=== PATIENT | female | born 1960 | race Caucasian/White ===

== ENCOUNTER 2024-12-21 16:04 | Emergency (ER) | payer BC, SELFPAY ==
[2024-12-21 16:06] VITALS: BP 180/102
--- NOTE | 2024-12-21 18:51 | ED.GENMED ---
History of Present Illness
General
Chief Complaint: DVT/Possible Blood Clot
Source: patient
Exam Limitations: none
Time Seen by Provider: 12/21/24 18:08
Nursing documentation reviewed up to this point in time: agreed with
History of Present Illness
History of Present Illness:
64-year-old female presenting to the emergency department today with concerns of right calf swelling over the past few weeks. Sent in by her primary care doctor. Denies any chest pain shortness of breath no history of blood clots no recent trauma
surgery immobilization
Past History
Past History
ED Past Medical History: Hypercholesterolemia (Intolerant of meds), Hypothyroidism and Psychiatric (ADHD meds, antidepressants,)
ED Past Surgical History: Cardiac
Social History
Tobacco: 2nd hand smoke exposure
Drug: None
Personal:
Living: with family
Employment: Employed
Family History
Family History: Negative Early CAD
Review of Systems
Review of Systems
Allergies reviewed?: Yes
All Other Systems: ROS reviewed and negative except as documented in HPI and ROS
Phy Exam
Physical Exam
Physical Exam:
GENERAL: Alert , in no apparent distress
EYE: pupils equal and reactive
NECK: Supple, no significant adenopathy.
ENT: o/p clr, mmm.
CARDIAC: Regular rate and rhythm .
LUNGS: Clear breath sounds bilaterally, no acute respiratory distress, no wheezes/rales/rhonchi
ABDOMEN: Soft, without focal tenderness, no r/g, no cvat
NEUROLOGICAL: Alert and oriented, no focal neuro deficits
SKIN: Warm and dry, skin intact.
MUSCULOSKELETAL: Vague nonpitting edema to the right lower extremity distal to the knee no redness or warmth good distal pulses, well perfused.
PSYCH: Normal and appropriate interaction.
Course
Orders/Labs/Results
Orders:
Orders
12/21/24 16:07
Legs, Right US [US Periph Venous LOWER Ext RT] Urgent
Comment:
Reason For Exam: r/o DVT
Vital Signs
Initial and Last Documented VS:
Initial Vital Signs
Temp Pulse Resp BP Pulse Ox
98 F 98 16 180/102 98
12/21/24 16:06 12/21/24 16:06 12/21/24 16:06 12/21/24 16:06 12/21/24 16:06
Last Documented Vital Signs
Temp Pulse Resp BP Pulse Ox
98 F 98 16 180/102 98
12/21/24 16:06 12/21/24 16:06 12/21/24 16:06 12/21/24 16:06 12/21/24 16:06
MDM/Problems Addressed
MDM/Problems Addressed:
64-year-old female presenting to the emergency department today with concerns of right leg swelling over the past few weeks. Denies any chest pain shortness of breath no history of blood clots. Here ultrasound was performed without emergent
findings. Initial blood pressure elevated but improving without specific treatment here. Normal perfusion on examination. Advised for compression stocking and elevation otherwise advised her close outpatient follow-up for monitoring. Return
precautions given.
*Critical Care Note
Total Time (30-74mins, 75-104mins- exclusive of procedures): Not Applicable
ED Attending Note
-
Portions of this chart may have been created with voice recognition software.� Occasional wrong word or��sound alike� substitutions may have occurred due to the inherent limitations of voice recognition software.
Discharge Plan
Departure
Patient Disposition: Home (Routine Discharge)
Date of Disposition: 12/21/24
Time of Disposition: 18:52
Patient with high blood pressure during this ER visit?: No
Condition: Good
Covid-19: Not Applicable
Discharge Problem:
Leg swelling
Referrals:
Humaira Sexton MD [Family Provider] -
Activity Restrictions/Additional Instructions:
You came to the emergency department today with concerns of leg swelling. You had a normal ultrasound here. Please follow close with your primary care doctor for ongoing symptoms. Return for any worsening, new or concerning symptoms.
Interventions
Interventions:
*Risk Screen - Suicide Last Done: 12/21/24 16:07
*Neglect/Abuse Screening Last Done: 12/21/24 16:07
Discharge Date and Time
Print Language: FAROESE
== END 2024-12-21 18:58 | disposition home or self-care (01) ==
LOC: EMR 16:04
PROVIDERS: EMERGENCY PHYSICIAN Emergency Medicine; FAMILY PHYSICIAN Internal Medicine
DX: R22.41 Localized swelling, mass and lump, right lower limb (principal); E78.00 Pure hypercholesterolemia, unspecified; E03.9 Hypothyroidism, unspecified; F90.9 Attention-deficit hyperactivity disorder, unspecified type; Z77.22 Contact with and (suspected) exposure to environmental tobacco smoke (acute) (chronic)
CPT/HCPCS: 99284; 93971

== ENCOUNTER 2025-02-07 10:03 | Emergency (ER) | payer BC, SELFPAY ==
[2025-02-07 10:13] VITALS: BP 133/76
[2025-02-07 10:41] LABS: % Basophils 0.9 % (0-2); % Eosinophils 6.3 % (0-6); % Immature Granulocytes 0.7 % (0-0.5); % Lymphocytes 30.7 % (20.5-51.1); % Monocytes 10.2 % (1.7-9.3); % Neutrophils 51.2 % (42.2-75.2); Absolute Basophils 0.1 10^3/uL (0-0.2); Absolute Eosinophils 0.4 10^3/uL (0-0.7); Absolute Lymphocytes 1.7 10^3/uL (1.2-3.4); Absolute Monocytes 0.6 10^3/uL (0.1-0.6); Absolute Neutrophils 2.9 10^3/uL (1.4-6.5); Hemoglobin 14.5 g/dL (12.0-16.0); Mean Corp Hgb Conc. 33.7 g/dL (33.0-37.0); Mean Corpuscular Hgb 29.1 pg (27.0-31.0); Mean Corpuscular Volume 86.2 fL (81.0-99.0); Nucleated Red Blood Cells % 0 %; Platelet Count 230 10^3/uL (130-400); Red Blood Cell Count 4.99 10^6/uL (4.20-5.40); Red Cell Dist. Width 13.9 % (11.5-14.5); White Blood Cell Count 5.6 10^3/uL (4.8-10.8)
[2025-02-07 10:53] VITALS: BP 116/75
[2025-02-07 11:00] VITALS: BP 122/80
[2025-02-07 11:06] LABS: ALT (SGPT) 24 U/L (0-35); AST (SGOT) 29 U/L (14-36); Albumin 3.7 g/dl (3.5-5.0); Alkaline Phosphatase 120 U/L (38-126); Blood Urea Nitrogen 30 mg/dl (7-17); Calcium 9.2 mg/dl (8.4-10.2); Carbon Dioxide 26 mmol/L (22-30); Chloride 108 mmol/L (98-107); Glucose 142 mg/dl (70-99); Potassium 4.7 mmol/L (3.5-5.1); Sodium 141 mmol/L (135-145); Total Bilirubin 0.5 mg/dl (0.2-1.3); Total Protein 7.4 g/dl (6.3-8.2); eGFR 56.11
[2025-02-07 11:27] LABS: Troponin I < 0.012 ng/ml
[2025-02-07 11:32] VITALS: BMI 37.6
[2025-02-07 11:36] LABS: TSH Reflex To Free T4 4.06 uIU/ml (0.47-4.68)
--- NOTE | 2025-02-07 12:04 | ED.GENMED ---
History of Present Illness
General
Chief Complaint: Heart Rate Problem
Time Seen by Provider: 02/07/25 10:48
History of Present Illness
History of Present Illness:
64-year-old female presents emergency department for evaluation of frequent episode of heart palpitations ongoing for the past week. Notes particular increase in frequency in these over the past 3 to 4 days. Was using a portable pulse oximeter at
home showing saturations of 99% however heart rates varied between 60 and 180. Episodes last anywhere from 20 to 30 minutes before resolving. No obvious provoking or palliating factors. She does have a follow-up scheduled tomorrow with her
recycling specialist at [facility]
Past History
Past History
ED Past Medical History: Hypercholesterolemia (Intolerant of meds), Hypothyroidism and Psychiatric (ADHD meds, antidepressants,)
ED Past Surgical History: Cardiac
Social History
Tobacco: 2nd hand smoke exposure
Drug: None
Personal:
Living: with family
Employment: Employed
Family History
Family History: Negative Early CAD
Review of Systems
Review of Systems
Allergies reviewed?: Yes
All Other Systems: ROS reviewed and negative except as documented in HPI and ROS
Phy Exam
Physical Exam
Physical Exam:
GEN: Well appearing, NAD, WDWN
HEENT: Oral mucosa moist, no scleral icterus
Cardiac: Regular rate and rhythm, no murmurs
Lung: No respiratory distress, no tachypnea, lungs clear to auscultation bilaterally
MSK: No gross deformity or injuries
Skin: Good color, no pallor or jaundice, no rashes
Neuro: AO x3, moves all extremities freely
Psych: Calm, cooperative
Course
Orders/Labs/Results
Orders:
Orders
02/07/25
Electrocardiogram (*1) Stat
Reason for Study: Chest Pain
Comment: DONE
02/07/25 10:06
EKG with chest pain [ECG as needed] As Directed
ECG as needed for:: Rhythm Change
02/07/25 10:35
Complete Blood Count/With Diff Urgent
Comprehensive Metabolic Panel Urgent
TSH Reflex To Free T4 Urgent
Troponin I Urgent
Abnormal Lab Results
02/07/25
10:35
Immature Gran % 0.7 H %
(0-0.5)
Monocytes % 10.2 H %
(1.7-9.3)
Eosinophils % 6.3 H %
(0-6)
Chloride 108 H mmol/L
(98-107)
BUN 30 H mg/dl
(7-17)
Creatinine 1.1 H mg/dL
(0.6-1.0)
Glucose 142 H mg/dl
(70-99)
02/07/25 10:35
02/07/25 10:35
Vital Signs
Initial and Last Documented VS:
Initial Vital Signs
Temp Pulse Resp BP Pulse Ox
97.5 F 89 18 133/76 98
02/07/25 10:13 02/07/25 10:13 02/07/25 10:13 02/07/25 10:13 02/07/25 10:13
Last Documented Vital Signs
Temp Pulse Resp BP Pulse Ox
97.5 F 85 18 122/80 98
02/07/25 10:13 02/07/25 11:15 02/07/25 11:15 02/07/25 11:00 02/07/25 11:37
MDM/Problems Addressed
MDM/Problems Addressed:
No episodes of palpitations or cardiac dysrhythmias in the ED. Labs are reassuring, she has follow-up tomorrow with cardiology at which time I recommended a Holter monitor
*Critical Care Note
Total Time (30-74mins, 75-104mins- exclusive of procedures): Not Applicable
ED Attending Note
-
Portions of this chart may have been created with voice recognition software.� Occasional wrong word or��sound alike� substitutions may have occurred due to the inherent limitations of voice recognition software.
Discharge Plan
Departure
Patient Disposition: Home (Routine Discharge)
Date of Disposition: 02/07/25
Time of Disposition: 12:04
Patient with high blood pressure during this ER visit?: No
Discharge Problem:
Heart palpitations
Instructions: Palpitations (DC)
Referrals:
Humaira Sexton MD [Family Provider] -
Activity Restrictions/Additional Instructions:
See you recycling specialist for a Holter monitor tomorrow
Return if symptoms worsen
Interventions
Interventions:
*Risk Screen - Suicide Last Done: 02/07/25 10:13
*General Assessment Last Done: 02/07/25 10:13
*Neglect/Abuse Screening Last Done: 02/07/25 10:13
*ED- Fall Risk Assessment Last Done: 02/07/25 11:32
*ED COVID-19 Vaccine History Last Done: 02/07/25 10:13
*Nursing Disposition Last Done: 02/07/25 12:00
ED- Cardiac Assessment Last Done: 02/07/25 11:32
ED- Pulmonary Assessment Last Done: 02/07/25 11:32
Discharge Date and Time
Discharge Date/Time: 02/07/25 12:00
Print Language: CHADIAN
== END 2025-02-07 12:00 | disposition home or self-care (01) ==
LOC: EMR 10:03
PROVIDERS: Emergency Medicine; EMERGENCY PHYSICIAN Emergency Medicine; FAMILY PHYSICIAN Internal Medicine
DX: R00.2 Palpitations (principal); E78.00 Pure hypercholesterolemia, unspecified; E03.9 Hypothyroidism, unspecified; F90.9 Attention-deficit hyperactivity disorder, unspecified type; Z77.22 Contact with and (suspected) exposure to environmental tobacco smoke (acute) (chronic)
CPT/HCPCS: 99283; 80053; 84443; 84484; 85025; 93005